=== PATIENT | female | born 1965 | race Caucasian/White ===

== ENCOUNTER → 2017-12-06 10:50 | Outpatient (CLI) | payer OTHER, SELFPAY ==
[2017-12-06 14:09] LABS: Hemoglobin A1c 5.6 % (4.2-6.3)
[2017-12-06 14:49] LABS: Estradiol 1038.4 pg/mL; T4 Free Direct 1.09 ng/dL (0.76-1.46); Thyroid Stim Hormone (TSH) 3.29 uIU/mL (0.358-3.74)
[2017-12-06 14:58] LABS: Progesterone Level 0.35 ng/mL (See Comment)
[2017-12-07 12:09] LABS: DHEA Sulfate 86.4 ug/dL (41.2-243.7)
[2017-12-12 14:44] LABS: HPV Reflexed? NOT INDICATED
== END ==
PROVIDERS: Visit Provider Obstetrics & Gynecology
DX: Z12.4 Encounter for screening for malignant neoplasm of cervix (principal); N95.1 Menopausal and female climacteric states
CPT/HCPCS: 36415; 82533; 82627; 82670; 83036; 84144; 84403; 84439; 84443; 84481; 88175; 82626; G0145

== ENCOUNTER → 2018-04-19 12:37 | Outpatient (CLI) | payer OTHER, SELFPAY ==
[2018-04-19 13:39] LABS: Estradiol < 11.0 pg/mL
[2018-04-20 09:54] LABS: Progesterone Level 32.53 ng/mL (See Comment)
== END ==
PROVIDERS: Visit Provider Obstetrics & Gynecology
DX: N92.6 Irregular menstruation, unspecified (principal)
CPT/HCPCS: 36415; 82670; 84144

== ENCOUNTER → 2018-08-07 10:48 | Outpatient (CLI) | payer OTHER, SELFPAY ==
[2018-08-07 14:13] LABS: Estradiol 13.9 pg/mL
[2018-08-07 14:20] LABS: Progesterone Level 15.73 ng/mL (See Comment)
== END ==
PROVIDERS: Visit Provider Obstetrics & Gynecology
DX: N95.1 Menopausal and female climacteric states (principal)
CPT/HCPCS: 36415; 82670; 84144

== ENCOUNTER → 2019-01-03 11:12 | Outpatient (CLI) | payer OTHER, SELFPAY ==
[2019-01-03 14:06] LABS: Hematocrit 42.3 % (37-47); Hemoglobin 14.2 g/dl (12.0-15.0); Mean Corp Hgb Conc 33.6 g/gl (32-36); Mean Corpuscular Hgb 29.2 pg (27.0-32.0); Mean Corpuscular Volume 86.9 fL (81-99); Mean Platelet Vol. 11.8 fl (6.2-12.0); Platelet Count 254 K/mm3 (150-450); RBC Distribution Width CV 13.4 % (11.6-14.6); RBC Distribution Width SD 42.7 fl (35.1-43.9); Red Blood Count 4.87 M/mm3 (4.2-5.4); Scan Indicated on CBC? Y/N NO; White Blood Count 8.6 K/mm3 (4.4-11.0)
[2019-01-03 14:20] LABS: Estradiol 20.7 pg/mL; Free T3 2.9 pg/mL (2.18-3.98); T4 Free Direct 1.13 ng/dL (0.76-1.46); Thyroid Stim Hormone (TSH) 2.24 uIU/mL (0.358-3.74)
[2019-01-03 14:21] LABS: Progesterone Level 8.84 ng/mL (See Comment)
[2019-01-04 11:25] LABS: DHEA Sulfate 126.2 ug/dL (41.2-243.7)
[2019-01-07 14:15] LABS: HPV Reflexed? NOT INDICATED
== END ==
PROVIDERS: Visit Provider Obstetrics & Gynecology
DX: N95.1 Menopausal and female climacteric states (principal); R63.5 Abnormal weight gain; G47.00 Insomnia, unspecified; Z12.4 Encounter for screening for malignant neoplasm of cervix
CPT/HCPCS: 36415; 82533; 82627; 82670; 83036; 84144; 84403; 84439; 84443; 84481; 85027; 88175; 82626; G0145

== ENCOUNTER → 2019-04-24 10:19 | Outpatient (CLI) | payer OTHER, SELFPAY ==
[2019-04-24 12:32] LABS: Progesterone Level 1.33 ng/mL (See Comment)
== END ==
PROVIDERS: Visit Provider Obstetrics & Gynecology
DX: N95.1 Menopausal and female climacteric states (principal)
CPT/HCPCS: 36415; 82670; 83036; 84144; 84403

== ENCOUNTER → 2019-08-15 11:53 | Outpatient (CLI) | payer OTHER, SELFPAY ==
[2019-08-15 12:49] LABS: Estradiol < 11.0 pg/mL
[2019-08-15 12:51] LABS: Progesterone Level 1.44 ng/mL (See Comment)
[2019-08-15 12:59] LABS: Hemoglobin A1c 5.6 % (4.2-6.3)
== END ==
PROVIDERS: Visit Provider Obstetrics & Gynecology
DX: N95.1 Menopausal and female climacteric states (principal)
CPT/HCPCS: 36415; 82670; 83036; 84144; 84403

== ENCOUNTER → 2020-03-03 11:14 | Outpatient (CLI) | payer OTHER, SELFPAY ==
[2020-03-03 14:21] LABS: Estradiol 11.7 pg/mL; Follicle Stimulating Hormone 48.3 mIU/mL
[2020-03-04 04:12] LABS: DHEA Sulfate 74.9 ug/dL (41.2-243.7)
[2020-03-04 11:17] LABS: Albumin, Serum 4.1 g/dL (3.2-5.0); CRP, High Sensitivity Cardiac 1.15 mg/L
== END ==
PROVIDERS: Visit Provider Obstetrics & Gynecology
DX: N95.1 Menopausal and female climacteric states (principal)
CPT/HCPCS: 36415; 82040; 82627; 82670; 83001; 84144; 84270; 84403; 86141; 82626

== ENCOUNTER → 2020-11-02 | Outpatient (CLI) | payer OTHER, SELFPAY ==
--- NOTE | 2020-11-02 12:00 | COLBX_PTH ---
PATIENT: GORGE RUTH LOC: [facility] U#:[id number] AGE/SX: 55/F ROOM: RE11/02/[address]: Dr. Ed Yu MD : 1965 BED: DIS: 11/02/2020 SPEC #: [id number] RECD: 11/02/20 14:58 STATUS: RAFAT ANTON #: [id number] NICK: 11/02/20 12:[address]: Ed Yu DEPT: SURGICAL PATHOLOGY RECD BY: Adelaide Gallardo ENTERED: 11/03/20 07:15 SP TYPE: COLON BX OTHR DR: [facility] [place] Tissues: A - Right colon B - Sigmoid colon biopsy Procedures: Surgery Specimen Level IV HEADER OPERATION: Colonoscopy PRE-OP DIAGNOSIS: History of adenomatous polyp of colon TISSUE SUBMITTED: A - Polyp right colon, B - Polyp proximal sigmoid MICROSCOPIC DIAGNOSIS A. Right colon polyp, biopsy: Tubular adenoma. B. Proximal sigmoid colon polyp, biopsy: Hyperplastic polyp. AM:kevin 11/04/2020 MICROSCOPIC DESCRIPTION Slides are reviewed. GROSS DESCRIPTION A - Received in fixative is one container labeled with the patient's name and designated polyp right colon. The specimen consists of two irregular fragments of light mcelroy soft tissue that in aggregate measure 0.5 x 0.3 x 0.1 cm. The specimen is totally submitted in one cassette. B - Received in fixative is one container labeled with the patient's name and designated polyp proximal sigmoid. The specimen consists of two irregular fragments of light mcelroy soft tissue that in aggregate measure 0.6 x 0.3 x 0.1 cm. The specimen is totally submitted in one cassette. / SJ:kevin 11/03/20 TC:5 CPT: 49138 x2
== END | disposition home or self-care (01) ==
LOC: LABSPEC 15:16
PROVIDERS: Referring Provider Internal Medicine Gastroenterology; Visit Provider Internal Medicine Gastroenterology
DX: D12.6 Benign neoplasm of colon, unspecified (principal); Z87.19 Personal history of other diseases of the digestive system
CPT/HCPCS: 88305

== ENCOUNTER → 2021-03-05 09:52 | Outpatient (CLI) | payer OTHER, SELFPAY ==
[2021-03-05 11:38] LABS: Progesterone Level 1.02 ng/mL (See Comment); Vitamin D,25 Hydroxy 48.6 ng/mL
[2021-03-05 13:17] LABS: Estradiol 24.7 pg/mL; T4 Free Direct 1.19 ng/dL (0.76-1.46); Thyroid Stim Hormone (TSH) 2.25 uIU/mL (0.358-3.74)
[2021-03-06 10:04] LABS: Sex Hormone-binding Globulin 53.6 nmol/L (17.3-125.0)
== END ==
PROVIDERS: Visit Provider Obstetrics & Gynecology
DX: Z79.890 Hormone replacement therapy (principal)
CPT/HCPCS: 36415; 82306; 82670; 84144; 84270; 84403; 84439; 84443; 84481

== ENCOUNTER → 2022-08-10 | Outpatient (CLI) | payer OTHER, SELFPAY ==
[2022-08-19 15:14] LABS: HPV APTIMA, High Risk Negative (Negative)
== END | disposition home or self-care (01) ==
LOC: LABSPEC 14:50
PROVIDERS: Visit Provider Student in an Organized Health Care Education/Training Program
DX: Z12.4 Encounter for screening for malignant neoplasm of cervix (principal)
CPT/HCPCS: 87624; 88175; G0145